=== PATIENT | male | born 1985 | race African-American/Black ===

== ENCOUNTER 2017-02-06 09:53 | Emergency (ER) | payer OTHER ==
--- NOTE | ~2017-02-06 | CT4 ---
[facility] A Service of [facility] / [facility] RADIOLOGY TEXT RESULTS PATIENT: DEBORAH WILKES LOCATION: [place] : [id number] UNIT #: [id number] AGE: [address]: Micha Pereira MD SEX: M ORDER DR: [id number] [facility]. [place], [place] [address] [id number] MR#: [id number] Acc #: [id number] NAME: DEBORAH WILKES : 1985 SEX: M STUDY DATE/TIME: 02/06/2017 10:17 UNIT: [place] ROOM: STUDY DESCRIPTION: CT Abd and Pelv Wo Cont Attending Physician: Micha Pereira Ordering Physician: Micha Pereira, [id number] Primary Care Physician: [facility] MEDICAL IMAGING REPORT This report is preliminary unless electronic signature is present EXAM CT abdomen and pelvis with contrast INDICATIONS Right lower quadrant abdominal pain for [address] of the abdomen and pelvis was performed without contrast. Coronal and sagittal reformatted images obtained. This CT exam was performed with one or more of the following radiation dose reduction techniques: automatic exposure control, adjustment of mA and/or kV according to patient size, and iterative reconstruction. No comparisons. FINDINGS The lung bases are clear. Liver, gallbladder and spleen are unremarkable. No evidence of renal stone or hydronephrosis. The adrenal glands and pancreas are unremarkable. Pelvis: The colon is unremarkable. The appendix is normal. There is no free fluid. The bone windows are unremarkable. IMPRESSION No acute findings. No kidney stone. Normal appendix. Dictated by... Renato Sosa M.D. THIS IS AN ELECTRONICALLY VERIFIED REPORT Renato Sosa M.D. at 02/07/2017 4:35 PM ARS/dj [facility] A Service [facility] RADIOLOGY TEXT RESULTS PATIENT: DEBORAH WILKES LOCATION: [place] : [id number] UNIT #: [id number] AGE: [address]: Micha Pereira MD SEX: M ORDER DR: TD: 02/06/2017 12:35 JOB #: [id number] MEDICAL IMAGING REPORT Page 1 of 1 COPY
[2017-02-06 09:49] LABS: URINE SOURCE CLEAN CATCH
[~2017-02-06 09:53] MED LIST: ALPRAZOLAM PO
[2017-02-06 09:58] LABS: BASOPHIL% 0.6 % (0-2.5); EOSINOPHIL# 0.1 X10e3 (0-0.7); EOSINOPHIL% 1.3 % (0.0-7.0); HEMATOCRIT 47.8 % (38.0-50.0); HEMOGLOBIN 15.8 gm/dL (13.0-16.0); LYMPHOCYTE# 1.4 X10e3 (1.0-3.5); LYMPHOCYTE% 23.3 % (17.0-45.0); MEAN CELL VOLUME 83.1 FL (83-96); MEAN CORPUSCULAR HEMOGLOBIN 27.4 PG (28-34); MEAN PLATELET VOLUME 7.4 FL (6.5-11.5); MONOCYTE# 0.6 X10e3 (0-1.0); MONOCYTE% 10.4 % (3.0-12.0); NEUTROPHIL# 3.8 X10e3 (1.5-7.1); NEUTROPHIL% 64.4 % (40-75); PLATELET COUNT 235 X10e3 (140-420); RED BLOOD COUNT 5.76 X10e (3.90-5.60); RED CELL DISTRIBUTION WIDTH 15.2 % (11.0-15.5); WHITE BLOOD COUNT 5.9 X10e3 (4.0-10.5)
[2017-02-06 09:59] LABS: URINE APPEARANCE CLEAR; URINE BILIRUBIN NEG (NEG); URINE BLOOD NEG (NEG); URINE COLOR YELLOW; URINE GLUCOSE NEG (NEG); URINE KETONE NEG (NEG); URINE LEUKOCYTE ESTERASE NEG (NEG); URINE NITRATE NEG (NEG); URINE PH 5.5 (5-8); URINE PROTEIN NEG (NEG); URINE SPECIFIC GRAVITY 1.016 (1.003-1.035); URINE UROBILINOGEN 0.2 MG/DL (NEG)
[2017-02-06 10:00] LABS: DIFF IND NO
[2017-02-06 10:05] LABS: CULTURE INDICATED? NO
[2017-02-06 10:29] LABS: ALBUMIN SERUM 4.2 g/dL (3.5-5.0); BILIRUBIN, DIRECT 0.1 mg/dL (0.0-0.2); BILIRUBIN,TOTAL 1.1 mg/dL (0.2-2.0); CALCIUM SERUM 9.2 mg/dL (8.4-10.2); GLOM FILT RATE Estimated 114.9 mL/min (>60); POTASSIUM 3.3 mmol/L (3.5-5.1); PROTEIN TOTAL SERUM 7.9 g/dL (6.0-8.3)
== END 2017-02-06 11:25 | disposition home or self-care (01) ==
LOC: CED 09:53
PROVIDERS: Emergency Medicine
DX: R10.31 Right lower quadrant pain (principal); E87.6 Hypokalemia; I10 Essential (primary) hypertension
CPT/HCPCS: 36415; 74176; 80048; 80076; 81003; 82150; 83690; 85025; 99284